=== PATIENT | female | born 1965 | race Caucasian/White ===

== ENCOUNTER 2016-10-14 10:30 | Day surgery (SDC) | payer OTHER ==
[~2016-10-14] VITALS: Ht 165.1 cm; Wt 76.7 kg
[~2016-10-14 10:30] MED LIST: 0.9% Sodium Chloride 1,000 ML IV SCH; Sodium Chloride LOK Flush 10 mL Syringe IV PRN; [UNRECOGNIZED DRUG - REMARK]; fentaNYL-PF 50 mCg/mL 2 mL Inj IVPUSH PRN
[2016-10-14 10:56] VITALS: BP 125/83; PULSE 84; RESP 17; O2SAT 96
[2016-10-14] MEDS ORDERED: RED30POW MC (11:00)
[2016-10-14] MEDS ORDERED: IBUP200C PO (11:00)
[2016-10-14] MEDS ORDERED: RED600CA2 PO (11:00)
[2016-10-14] MEDS ORDERED: CHOL500051 PO (11:00)
[2016-10-14] MEDS ORDERED: VITA100T4 PO (11:00)
[2016-10-14] MEDS ORDERED: AMOX500C2 PO (11:00)
[2016-10-14 12:15] VITALS: BP 103/62; PULSE 78; RESP 14; O2SAT 97
[2016-10-14 12:25] VITALS: BP 113/82; PULSE 75; RESP 16; O2SAT 99
[2016-10-14 12:27] VITALS: BP 114/81; PULSE 74; RESP 16; O2SAT 97
--- NOTE | 2016-10-14 13:08 | ENDO ---
[address] [address] ENDOSCOPY PROCEDURE PATIENT: LEANN SIEGEL : 1965 MR#: [id number] ADMIT: 10/14/2016 JOB ID: [id number] PROCEDURE: Colonoscopy. INDICATIONS: Screening. Patient's ASA classification is one. Mallampati score is two. MEDICATIONS: Versed 7 mg, Fentanyl 150 mcg. INSTRUMENT USED: PCF H 190 DL. PREPARATION QUALITY: Good. PROCEDURE DETAILS: After informed consent was obtained, the patient was brought to the GI suite where she was placed on oxygen via nasal cannula and monitored with continuous pulse oximeter, telemetry, and blood pressure monitoring. A time-out was performed, then she was placed in the left lateral decubitus position and medications were administered for sedation. Digital rectal exam was performed, which was unremarkable. The colonoscope was then inserted into the rectum and advanced under direct visualization to the cecum, which was identified by the presence of the ileocecal valve and appendiceal orifice. Once the cecum was reached, the colonoscope was withdrawn back to the rectum as the mucosa and lumen were examined. In the rectum, retroflexion was performed. Following retroflexion, the remaining air in the rectum was suctioned and the procedure was completed. FINDINGS: In the sigmoid colon there was a diminutive polyp that was removed with cold biopsy forceps. IMPRESSION: Sigmoid polyp. RECOMMENDATIONS: Repeat colonoscopy pending polyp pathology results. COMPLICATIONS: None. ESTIMATED BLOOD LOSS: Less than 5 mL.
--- NOTE | 2016-10-17 14:11 | PATH ---
SURGICAL PATHOLOGY Attending Physician:Aleah Lassiter CASE STATUS: Signed Out PATIENT NAME: LEANN SIEGEL PID: [id number] : 1965 DATE COLLECTED:10/14/2016 17:26 SPECIMEN: Colon, Polyp CLINICAL HISTORY: 1). SIGMOID POLYP FINAL DIAGNOSIS: 1.SIGMOID COLON POLYP: HYPERPLASTIC POLYP. ICD10 D12.6 GROSS DESCRIPTION: The specimen is received in formalin, labeled with the patient's name, sublabeled as sigmoid polyp and consists of a multiple fragments of bruce-white glistening semitranslucent tissue (0.7 x 0.2 x <0.1 cm in aggregate). Section code: (A) tissue. Specimen entirely submitted. 10/15/16 JM MICRO DESCRIPTION: See diagnosis. ICD-9 CODES: CPT CODES: 1: 69773 Electronically Signed Out Edgardo Chaidez MD [facility] [address], [place] [address] Technical component performed at [facility], [address] [place] [address] Ave[address], [place], [address]
== END 2016-10-14 23:59 | disposition home or self-care (01) ==
LOC: END 10:30
PROVIDERS: ATTEND Internal Medicine Gastroenterology
DX: Z12.11 Encounter for screening for malignant neoplasm of colon (principal); K63.5 Polyp of colon
CPT/HCPCS: 45380; G0500; J2250; J3010; J7030